=== PATIENT | male | born 1965 | race American Indian/Alaskan Native ===

== ENCOUNTER 2021-10-29 22:03 | Inpatient (IN) ==
[2021-10-29] MEDS ORDERED: *HR* Ticagrelor 90 MG TABLET ONE (22:09)
[2021-10-29] MEDS ORDERED: *HR* Heparin 5,000 UNIT/ML VIAL ONE (22:09)
[2021-10-29] MEDS ORDERED: *HR* Heparin 5,000 UNIT/ML VIAL IVP ONE (22:15)
[2021-10-29] MEDS ORDERED: *HR* Ticagrelor 90 MG TABLET PO ONE (22:15)
[2021-10-29] MEDS ORDERED: Morphine Sulfate 2 MG/ML SYRINGE IVP ONE ×2 (22:19→22:21)
[2021-10-29 22:26] LABS: Basophils # 0.1 K/mcL (0.0-0.2); Basophils % 0.4 %; Eosinophils # 0.1 K/mcL (0.0-0.6); Eosinophils % 0.8 %; Hematocrit 40.5 % (37.5-50.1); Hemoglobin 14.1 g/dL (12.9-16.9); Immature Granulocytes % 0.5 % (0-4); Lymphocytes # 1.5 K/mcL (0.6-4.6); Lymphocytes % 11.5 %; Mean Corpuscular HGB Conc 34.8 g/dL (31.6-35.5); Mean Corpuscular Hemoglobin 28.3 pg (28.0-33.3); Mean Corpuscular Volume 81.2 fL (83.0-100.0); Monocytes # 0.7 K/mcL (0.0-1.3); Monocytes % 4.9 %; Neutrophils # 10.9 K/mcL (1.6-8.9); Platelet Count 266 K/mcL (140-400); Red Blood Count 4.99 M/mcL (4.19-5.50); Red Cell Distribution Width 12.3 % (11.5-14.5); Segmented Neutrophils % 81.9 %; White Blood Count 13.3 K/mcL (4.3-11.1)
[2021-10-29] MEDS ORDERED: 0.9 % Sodium Chloride 2,000 ML ONE (22:36)
[2021-10-29] MEDS ORDERED: Nitroglycerin 1,000 MCG/5 ML VIAL IV ONE (22:36)
[2021-10-29] MEDS ORDERED: *HR* Heparin 10,000 UNIT/10 ML VIAL ONE (22:36)
[2021-10-29] MEDS ORDERED: Iopamidol - 370 200 ML INFUS..BTL ONE (22:36)
[2021-10-29] MEDS ORDERED: Heparin 1,000 UNITS/500 mL 500 ML ONE (22:36)
[2021-10-29 22:37] LABS: Activated Partial Thrombo Time 32.8 Seconds (26.0-36.0); INR 1.1; Prothrombin Time 12.4 Seconds (9.4-12.1)
[2021-10-29 22:47] LABS: Potassium 4.1 mEq/L (3.5-5.1)
[2021-10-29 22:50] LABS: Troponin I 0.09 ng/mL (< 0.04)
[2021-10-29] MEDS ORDERED: *HR* FentaNYL (PF) 100 MCG/2 ML VIAL ONE (23:03)
[2021-10-29] MEDS ORDERED: *HR* Midazolam HCl 2 MG/2 ML VIAL ONE (23:04)
[2021-10-29] MEDS ORDERED: 0.9 % Sodium Chloride 1,000 ML ONE (23:09)
[2021-10-29] MEDS ORDERED: DOPamine Premix 0 MG/0 ML BAG ONE (23:15)
[2021-10-29] MEDS ORDERED: *HR* Atropine Sulfate 1 MG/10 ML SYRINGE ONE (23:15)
[2021-10-29] MEDS ORDERED: Naloxone 0.4 MG/ML INJ IVP PRN (23:31)
[2021-10-30 05:40] LABS: Basophils % 0.4 %; Eosinophils % 0.1 %; Hematocrit 34.8 % (37.5-50.1); Immature Granulocytes % 0.3 % (0-4); Lymphocytes # 1.3 K/mcL (0.6-4.6); Lymphocytes % 16.4 %; Mean Corpuscular HGB Conc 35.3 g/dL (31.6-35.5); Mean Corpuscular Hemoglobin 28.7 pg (28.0-33.3); Mean Corpuscular Volume 81.3 fL (83.0-100.0); Mean Platelet Volume 9.3 fL (9.4-12.4); Monocytes # 0.5 K/mcL (0.0-1.3); Monocytes % 5.9 %; Neutrophils # 5.9 K/mcL (1.6-8.9); Platelet Count 184 K/mcL (140-400); Red Blood Count 4.28 M/mcL (4.19-5.50); Red Cell Distribution Width 12.6 % (11.5-14.5); Segmented Neutrophils % 76.9 %; White Blood Count 7.7 K/mcL (4.3-11.1)
[2021-10-30 05:41] LABS: Hemoglobin 12.3 g/dL (12.9-16.9)
[2021-10-30 05:46] LABS: Estimated Average Glucose 111 mg/dl; Hemoglobin A1C 5.5 %
[2021-10-30 06:03] LABS: BUN/Creatinine Ratio 8 (6-26); Blood Urea Nitrogen 6 mg/dL (6-20); Calcium 7.8 mg/dL (8.6-10.3); Carbon Dioxide 19 mEq/L (23-29); Chloride 101 mEq/L (98-107); Chol/HDL Ratio 5.2 (0-4.9); Cholesterol 150 mg/dL (< 200); Glucose 87 mg/dL (70-105); HDL Cholesterol 29 mg/dL (40-59); LDL Cholesterol,Calculated 108 mg/dL (< 100); Osmolality,Calculated 259 (280-300); Potassium 4.3 mEq/L (3.5-5.1); Sodium 126 mEq/L (136-145); Triglycerides 64 mg/dL (< 150)
[2021-10-30] MEDS ORDERED: Ondansetron 4 MG/2 ML VIAL IVP PRN (06:19)
[2021-10-30] MEDS ORDERED: Ondansetron 4 MG/2 ML VIAL ONE (06:20)
[2021-10-30] MEDS: Aspirin 81 MG TAB.CHEW PO SCH (08:41)
[2021-10-30] MEDS: *HR* Ticagrelor 90 MG TABLET PO SCH ×2 (08:42→19:50)
[2021-10-30] MEDS ORDERED: Iopamidol - 370 500 ML MLS IVP ONE (09:46)
[2021-10-30] MEDS ORDERED: Nitroglycerin 0.4 MG TAB.SUBL SL PRN (12:37)
[2021-10-30] MEDS ORDERED: 0.9 % Sodium Chloride 1,000 ML IVC SCH (13:30)
[2021-10-31] MEDS: *HR* Ticagrelor 90 MG TABLET PO SCH (10:08)
[2021-10-31] MEDS: Aspirin 81 MG TAB.CHEW PO SCH (10:09)
[2021-10-31] MEDS ORDERED: *HR* Ticagrelor 90 MG TABLET PO SCH (10:15)
[2021-10-31] MEDS ORDERED: NiCARdipine 2.5 MG/10 ML Syringe IVPB ONE (10:44)
[2021-10-31] MEDS ORDERED: DOBUTamine 0 MG/0 ML BAG ONE (10:44)
[2021-10-31] MEDS ORDERED: Chlorhexidine Rinse 15 ML MOUTHWASH MM SCH (10:45)
[2021-10-31] MEDS ORDERED: CeFAZolin Syr 2,000MG/20 ML 2,000 MG/20 ML SYRINGE IVPB ONE (10:45)
[2021-10-31] MEDS ORDERED: *HR* FentaNYL (PF) 1,000 MCG/20 ML VIAL ONE (10:48)
[2021-10-31] MEDS ORDERED: *HR* Magnesium Sulfate 1 GM/2 ML VIAL ONE (10:49)
[2021-10-31] MEDS ORDERED: Lidocaine 2% Syringe 100 MG/5 ML ONE (10:49)
[2021-10-31] MEDS ORDERED: *HR* Midazolam HCl 5 MG/5 ML VIAL IVP ONE (10:49)
[2021-10-31] MEDS ORDERED: *HR* Etomidate 20 MG/10 ML AMPUL IVP ONE (10:49)
[2021-10-31] MEDS ORDERED: *HR* Rocuronium Bromide 50 MG/5 ML VIAL ONE (10:49)
[2021-10-31] MEDS ORDERED: Papaverine 60 MG/2 ML VIAL IVP ONE (10:56)
[2021-10-31 11:05] LABS: Basophils % 0.4 %; Eosinophils % 0.2 %; Hematocrit 43.2 % (37.5-50.1); Immature Granulocytes % 0.3 % (0-4); Lymphocytes # 1.1 K/mcL (0.6-4.6); Mean Corpuscular HGB Conc 34.7 g/dL (31.6-35.5); Mean Corpuscular Hemoglobin 28.5 pg (28.0-33.3); Mean Corpuscular Volume 82.1 fL (83.0-100.0); Mean Platelet Volume 9.1 fL (9.4-12.4); Monocytes # 0.6 K/mcL (0.0-1.3); Neutrophils # 8.3 K/mcL (1.6-8.9); Platelet Count 242 K/mcL (140-400); Red Blood Count 5.26 M/mcL (4.19-5.50); Red Cell Distribution Width 12.5 % (11.5-14.5); Segmented Neutrophils % 82.1 %; White Blood Count 10.1 K/mcL (4.3-11.1)
[2021-10-31 11:13] LABS: Prothrombin Time 11.3 Seconds (9.4-12.1)
[2021-10-31 11:15] LABS: Activated Partial Thrombo Time 42.1 Seconds (26.0-36.0)
[2021-10-31 11:22] LABS: BUN/Creatinine Ratio 7 (6-26); Blood Urea Nitrogen 7 mg/dL (6-20); Carbon Dioxide 22 mEq/L (23-29); Chloride 96 mEq/L (98-107); Glucose 92 mg/dL (70-105); Osmolality,Calculated 264 (280-300); Potassium 3.6 mEq/L (3.5-5.1); Sodium 128 mEq/L (136-145)
[2021-10-31] MEDS ORDERED: lisinopriL 5 MG TABLET PO SCH (11:30)
[2021-10-31 11:44] VITALS: TEMP 98.2
[2021-10-31 11:46] VITALS: O2SAT 100
[2021-10-31 12:12] VITALS: BP 129/97; PULSE 54
[2021-11-02] MEDS ORDERED: Norepinephrine 4 MG in 0.9 % Sodium Chloride 250 ML IVC PRN (07:45)
[2021-11-02] MEDS ORDERED: Heparin 15,000 UNIT in 0.9 % Sodium Chloride 500 ML IR ONE (07:45)
[2021-11-02] MEDS ORDERED: del Nido Cardioplegia Solution PF ONE ×2 (08:00)
[2021-11-02] MEDS ORDERED: Buckersberg's Blood Cardioplegia PF ONE (08:00)
== END 2021-10-31 13:33 | disposition home or self-care (01) | DRG 174 ==
LOC: EMEROOARM 22:03 → ICNU 22:03
PROVIDERS: ADMIT Internal Medicine; ATTEND Internal Medicine

== ENCOUNTER 2021-12-10 06:02 | Inpatient (IN) ==
[~2021-12-10 06:02] MED LIST: CeFAZolin Syr 2,000MG/20 ML 2,000 MG/20 ML SYRINGE IVPB ONE; Chlorhexidine Rinse 15 ML MOUTHWASH MM SCH; DOBUTamine 1,000 MG/250 ML BAG ONE
[2021-12-10] MEDS ORDERED: *HR* FentaNYL (PF) 1,000 MCG/20 ML VIAL ONE (06:03)
[2021-12-10] MEDS ORDERED: *HR* Midazolam HCl 5 MG/5 ML VIAL IVP ONE (06:03)
[2021-12-10] MEDS ORDERED: *HR* Propofol 200 MG/20 ML VIAL IVP ONE (06:06)
[2021-12-10] MEDS ORDERED: Lidocaine 2% Syringe 100 MG/5 ML ONE (06:07)
[2021-12-10] MEDS ORDERED: *HR* Rocuronium Bromide 50 MG/5 ML VIAL ONE ×2 (06:07→09:25)
[2021-12-10] MEDS ORDERED: *HR* Magnesium Sulfate 1 GM/2 ML VIAL ONE (06:07)
[2021-12-10] MEDS ORDERED: Tranexamic Acid 1,000 MG/10 ML VIAL ONE (06:07)
[2021-12-10] MEDS ORDERED: Famotidine 20 MG/2 ML VIAL ONE (06:07)
[2021-12-10] MEDS ORDERED: Heparin 1,000 UNITS/500 mL 0 ML ONE (06:12)
[2021-12-10] MEDS ORDERED: CeFAZolin Syr 2,000MG/20 ML 2,000 MG/20 ML SYRINGE IVPB ONE (06:27)
[2021-12-10] MEDS ORDERED: Aspirin 325 MG TABLET PO ONE (06:28)
[2021-12-10] MEDS ORDERED: Ringers Solution, Lactated 1,000 ML IVC SCH (06:30)
[2021-12-10] MEDS ORDERED: Buckersberg's Blood Cardioplegia PF ONE (07:00)
[2021-12-10] MEDS ORDERED: Heparin 15,000 UNIT in 0.9 % Sodium Chloride 500 ML IR ONE (07:00)
[2021-12-10] MEDS ORDERED: Norepinephrine 4 MG in 0.9 % Sodium Chloride 250 ML IVC PRN (07:00)
[2021-12-10] MEDS ORDERED: del Nido Cardioplegia Solution PF ONE ×2 (07:00)
[2021-12-10 07:48] LABS: ABG Base Excess -3 mEq/L (-2 to 3); ABG Chloride 101 mEq/L (98-107); ABG Glucose 91 mg/dL (60-95); ABG HCO3 23 mEq/L (21-27); ABG Ionized Calcium 1.23 mmol/L (1.15-1.35); ABG Oxygen Saturation 100 % (95-98); ABG PCO2 42 mmHg (35-45); ABG PH 7.35 pH Units (7.32-7.45); ABG PO2 398 mmHg (85-104); ABG TCO2 24 mEq/L (20-26)
[2021-12-10] MEDS ORDERED: Heparin 1,000 UNITS/500 mL 500 ML ONE (08:10)
[2021-12-10 09:16] LABS: ABG Base Excess -4 mEq/L (-2 to 3); ABG Chloride 102 mEq/L (98-107); ABG Glucose 97 mg/dL (60-95); ABG HCO3 21 mEq/L (21-27); ABG Ionized Calcium 1.18 mmol/L (1.15-1.35); ABG Oxygen Saturation 100 % (95-98); ABG PCO2 37 mmHg (35-45); ABG PH 7.36 pH Units (7.32-7.45); ABG PO2 193 mmHg (85-104); ABG TCO2 22 mEq/L (20-26)
[2021-12-10 10:09] LABS: ABG Base Excess -2 mEq/L (-2 to 3); ABG Chloride 101 mEq/L (98-107); ABG Glucose 120 mg/dL (60-95); ABG HCO3 21 mEq/L (21-27); ABG Ionized Calcium 1.06 mmol/L (1.15-1.35); ABG Oxygen Saturation 100 % (95-98); ABG PCO2 31 mmHg (35-45); ABG PH 7.44 pH Units (7.32-7.45); ABG PO2 562 mmHg (85-104); ABG TCO2 22 mEq/L (20-26)
[2021-12-10] MEDS ORDERED: Insulin Regular, Human 100 UNIT/ML IV PRN (10:21)
[2021-12-10] MEDS ORDERED: Potassium Chloride 40 MEQ/200 ML BAG IVPB PRN (10:21)
[2021-12-10] MEDS ORDERED: *HR* Dextrose 50 % in Water (Syg) 50 ML SYRINGE IVP PRN (10:21)
[2021-12-10] MEDS ORDERED: Acetaminophen 325 MG TABLET PO PRN (10:23)
[2021-12-10] MEDS ORDERED: *HR* FentaNYL (PF) 100 MCG/2 ML VIAL IVP PRN (10:23)
[2021-12-10] MEDS ORDERED: Calcium Gluconate 1gm/50mL 1 GM/50 ML BAG IVPB PRN ×2 (10:23→13:30)
[2021-12-10] MEDS ORDERED: Albuterol 2.5 MG/3 ML NEBULIZER IH PRN (10:23)
[2021-12-10] MEDS ORDERED: Ondansetron 4 MG/2 ML VIAL IVP PRN (10:23)
[2021-12-10] MEDS ORDERED: Naloxone 0.4 MG/ML INJ IVP PRN (10:23)
[2021-12-10] MEDS ORDERED: Calcium Gluconate 1,000 MG/10 ML VIAL ONE (10:31)
[2021-12-10] MEDS ORDERED: Protamine Sulfate 250 MG/25 ML VIAL IVP ONE (10:31)
[2021-12-10 10:34] LABS: ABG Base Excess 2 mEq/L (-2 to 3); ABG Chloride 99 mEq/L (98-107); ABG Glucose 137 mg/dL (60-95); ABG HCO3 28 mEq/L (21-27); ABG Ionized Calcium 1.26 mmol/L (1.15-1.35); ABG Oxygen Saturation 100 % (95-98); ABG PCO2 47 mmHg (35-45); ABG PH 7.38 pH Units (7.32-7.45); ABG PO2 518 mmHg (85-104); ABG TCO2 29 mEq/L (20-26)
[2021-12-10 11:16] LABS: ABG Base Excess 2 mEq/L (-2 to 3); ABG Chloride 99 mEq/L (98-107); ABG Glucose 144 mg/dL (60-95); ABG HCO3 28 mEq/L (21-27); ABG Ionized Calcium 1.26 mmol/L (1.15-1.35); ABG Oxygen Saturation 100 % (95-98); ABG PCO2 48 mmHg (35-45); ABG PH 7.37 pH Units (7.32-7.45); ABG PO2 389 mmHg (85-104); ABG TCO2 29 mEq/L (20-26)
[2021-12-10] MEDS: Albumin Human 5% 12.5 GM/250 ML IV.SOLN IVPB PRN ×2 (11:42→20:03)
[2021-12-10 11:54] LABS: ABG Base Excess 1 mEq/L (-2 to 3); ABG HCO3 26 mEq/L (21-27); ABG Oxygen Saturation 100 % (95-98); ABG PCO2 44 mmHg (35-45); ABG PH 7.38 pH Units (7.32-7.45); ABG PO2 412 mmHg (85-104); ABG TCO2 28 mEq/L (20-26); Blood Gas Modality ASSIST CONTROL; Blood Gas VT 500 cc
[2021-12-10] MEDS: Ipratropium/Albuterol Neb 3 ML IH SCH ×4 (12:10→23:47)
[2021-12-10 12:14] LABS: INR 1.5; Prothrombin Time 16.2 Seconds (9.4-12.1)
[2021-12-10 12:17] LABS: Activated Partial Thrombo Time 34.2 Seconds (26.0-36.0)
[2021-12-10 12:21] LABS: BUN/Creatinine Ratio 5 (6-26); Blood Urea Nitrogen 4 mg/dL (6-20); Carbon Dioxide 25 mEq/L (23-29); Chloride 103 mEq/L (98-107); Glucose 173 mg/dL (70-105); Magnesium 2.4 mg/dL (1.6-2.6); Osmolality,Calculated 281 (280-300); Sodium 135 mEq/L (136-145)
[2021-12-10] MEDS: *HR* OxyCODONE/APAP 5/325 TABLET PO PRN ×3 (12:26→22:08)
[2021-12-10] MEDS ORDERED: *HR* Magnesium Sulfate 2 GM/50 ML PIGGYBACK IVPB ONE (12:54)
[2021-12-10] MEDS ORDERED: Heparin 1,000 UNITS/500 mL IV.SOLN IR ONE (12:54)
[2021-12-10] MEDS ORDERED: Albumin Human 25% 25 GM/100 ML IV.SOLN IVPB ONE (12:54)
[2021-12-10] MEDS ORDERED: *HR* Phenylephrine 10 MG/ML VIAL IVC ONE (12:54)
[2021-12-10] MEDS ORDERED: Lidocaine 2% Syringe 100 MG/5 ML IVP ONE (12:54)
[2021-12-10] MEDS ORDERED: Mannitol 25% vial 12.5 GM/50 ML VIAL IVPB ONE (12:54)
[2021-12-10] MEDS ORDERED: Tranexamic Acid 1,000 MG/10 ML VIAL IR ONE (12:54)
[2021-12-10] MEDS ORDERED: *HR* Heparin 10,000 UNIT/10 ML VIAL IR ONE (12:54)
[2021-12-10] MEDS ORDERED: Sodium Bicarbonate 50 MEQ/50 ML VIAL IVC ONE (12:54)
[2021-12-10 13:11] LABS: Basophils % 0.2 %; Eosinophils % 0.1 %; Hematocrit 32.8 % (37.5-50.1); Hemoglobin 11.1 g/dL (12.9-16.9); Immature Granulocytes % 0.4 % (0-4); Lymphocytes # 0.6 K/mcL (0.6-4.6); Lymphocytes % 5.2 %; Mean Corpuscular HGB Conc 33.8 g/dL (31.6-35.5); Mean Corpuscular Hemoglobin 27.3 pg (28.0-33.3); Mean Corpuscular Volume 80.8 fL (83.0-100.0); Mean Platelet Volume 8.8 fL (9.4-12.4); Monocytes # 0.2 K/mcL (0.0-1.3); Platelet Count 139 K/mcL (140-400); Red Blood Count 4.06 M/mcL (4.19-5.50); Red Cell Distribution Width 12.2 % (11.5-14.5); Segmented Neutrophils % 92.1 %
[2021-12-10 13:17] LABS: Neutrophils # 10.1 K/mcL (1.6-8.9)
[2021-12-10 16:12] LABS: ABG Base Excess 2 mEq/L (-2 to 3); ABG HCO3 27 mEq/L (21-27); ABG Oxygen Saturation 98 % (95-98); ABG PCO2 46 mmHg (35-45); ABG PH 7.37 pH Units (7.32-7.45); ABG PO2 113 mmHg (85-104); ABG TCO2 29 mEq/L (20-26); Blood Gas Modality CPAP/PS; Blood Gas Pressure Support 5 cm H2O
[2021-12-10] MEDS: CeFAZolin 2 GM/120 ML BAG IVPB SCH ×2 (17:31→23:59)
[2021-12-10] MEDS: Norepinephrine 4 MG/254 ML IV.SOLN IVC SCH (19:00)
[2021-12-10] MEDS: niCARdipine 20 MG/200 ML MLS IVC SCH (19:30)
[2021-12-10] MEDS: DOBUTamine 1,000 MG/250 ML BAG IVC SCH (19:30)
[2021-12-10] MEDS: Chlorhexidine Rinse 15 ML MOUTHWASH MM SCH (19:36)
[2021-12-10] MEDS: risperiDONE 1 MG TABLET PO SCH (19:51)
[2021-12-10] MEDS: hydrOXYzine pamoate 25 MG CAPSULE PO PRN (19:51)
[2021-12-10 20:12] LABS: ABG Base Excess 0 mEq/L (-2 to 3); ABG HCO3 24 mEq/L (21-27); ABG Oxygen Saturation 92 % (95-98); ABG PCO2 36 mmHg (35-45); ABG PH 7.44 pH Units (7.32-7.45); ABG PO2 62 mmHg (85-104); ABG TCO2 25 mEq/L (20-26)
[2021-12-11] MEDS: Ipratropium/Albuterol Neb 3 ML IH SCH ×5 (04:14→19:24)
[2021-12-11 04:40] LABS: Basophils % 0.1 %; Hematocrit 27.4 % (37.5-50.1); Immature Granulocytes % 0.5 % (0-4); Lymphocytes # 0.9 K/mcL (0.6-4.6); Lymphocytes % 5.4 %; Mean Corpuscular HGB Conc 34.7 g/dL (31.6-35.5); Mean Corpuscular Hemoglobin 27.9 pg (28.0-33.3); Mean Corpuscular Volume 80.6 fL (83.0-100.0); Mean Platelet Volume 9.3 fL (9.4-12.4); Monocytes # 1.1 K/mcL (0.0-1.3); Monocytes % 6.8 %; Neutrophils # 13.8 K/mcL (1.6-8.9); Platelet Count 154 K/mcL (140-400); Red Cell Distribution Width 12.2 % (11.5-14.5); Segmented Neutrophils % 87.2 %; White Blood Count 15.9 K/mcL (4.3-11.1)
[2021-12-11 04:42] LABS: INR 1.2; Prothrombin Time 13.7 Seconds (9.4-12.1)
[2021-12-11 04:58] LABS: Hemoglobin 9.5 g/dL (12.9-16.9)
[2021-12-11 05:04] LABS: BUN/Creatinine Ratio 6 (6-26); Blood Urea Nitrogen 5 mg/dL (6-20); Calcium 8.1 mg/dL (8.6-10.3); Carbon Dioxide 24 mEq/L (23-29); Chloride 104 mEq/L (98-107); Glucose 121 mg/dL (70-105); Magnesium 1.9 mg/dL (1.6-2.6); Osmolality,Calculated 275 (280-300); Potassium 4.1 mEq/L (3.5-5.1); Sodium 133 mEq/L (136-145)
[2021-12-11] MEDS: Norepinephrine 4 MG/254 ML IV.SOLN IVC SCH (05:10)
[2021-12-11] MEDS: niCARdipine 20 MG/200 ML MLS IVC SCH ×7 (05:11→20:08)
[2021-12-11] MEDS: *HR* OxyCODONE/APAP 5/325 TABLET PO PRN ×2 (05:42→12:27)
[2021-12-11] MEDS: *HR* Enoxaparin 40 MG/0.4 ML SYRINGE SQ SCH (05:47)
[2021-12-11] MEDS: CeFAZolin 2 GM/120 ML BAG IVPB SCH ×2 (07:55→16:05)
[2021-12-11] MEDS ORDERED: D5% in Water 1,000 ML IVC PRN (08:47)
[2021-12-11] MEDS ORDERED: Dextrose Gel 15 GM/37.5 ML TUBE PO PRN (08:47)
[2021-12-11] MEDS ORDERED: risperiDONE 1 MG TABLET PO SCH (09:00)
[2021-12-11] MEDS: Aspirin Enteric Coated 81 MG Tablet PO SCH (09:17)
[2021-12-11] MEDS: Chlorhexidine Rinse 15 ML MOUTHWASH MM SCH ×2 (09:17→20:06)
[2021-12-11] MEDS: risperiDONE 1 MG TABLET PO SCH ×2 (09:18→20:07)
[2021-12-11] MEDS: FLUoxetine 20 MG CAPSULE PO SCH (09:18)
[2021-12-11] MEDS: Pantoprazole 40 MG VIAL IVP SCH (09:18)
[2021-12-11] MEDS: OXcarbazepine 150 MG TABLET PO SCH (09:39)
[2021-12-11] MEDS: clonazePAM 0.5 MG TABLET PO SCH (09:39)
[2021-12-11] MEDS: Albumin Human 5% 12.5 GM/250 ML IV.SOLN IVPB PRN ×2 (10:04→10:48)
[2021-12-11] MEDS: DOBUTamine 1,000 MG/250 ML BAG IVC SCH (12:23)
[2021-12-11 13:13] LABS: ABG Base Excess -4 mEq/L (-2 to 3); ABG Chloride 100 mEq/L (98-107); ABG Glucose 92 mg/dL (60-95); ABG HCO3 21 mEq/L (21-27); ABG Ionized Calcium 1.04 mmol/L (1.15-1.35); ABG PCO2 39 mmHg (35-45); ABG PH 7.34 pH Units (7.32-7.45); ABG PO2 > 630 mmHg (85-104); ABG TCO2 22 mEq/L (20-26)
[2021-12-11] MEDS: Insulin LISPRO 300 UNITS/3 ML VIAL SUBQ SCH ×2 (13:56→16:11)
[2021-12-11] MEDS ORDERED: Aspirin 81 MG TAB.CHEW PO ONE (14:00)
[2021-12-11] MEDS: hydrOXYzine pamoate 25 MG CAPSULE PO PRN (20:06)
[2021-12-11] MEDS ORDERED: Insulin LISPRO 300 UNITS/3 ML VIAL SUBQ SCH (21:00)
[2021-12-12] MEDS: Ipratropium/Albuterol Neb 3 ML IH SCH ×4 (00:02→11:09)
[2021-12-12] MEDS: CeFAZolin 2 GM/120 ML BAG IVPB SCH ×2 (00:39→08:18)
[2021-12-12 04:05] LABS: Basophils % 0.3 %; Eosinophils # 0.1 K/mcL (0.0-0.6); Eosinophils % 0.9 %; Hematocrit 26.3 % (37.5-50.1); Hemoglobin 8.9 g/dL (12.9-16.9); Immature Granulocytes % 0.4 % (0-4); Lymphocytes # 2.1 K/mcL (0.6-4.6); Lymphocytes % 18.3 %; Mean Corpuscular HGB Conc 33.8 g/dL (31.6-35.5); Mean Corpuscular Hemoglobin 27.7 pg (28.0-33.3); Mean Corpuscular Volume 81.9 fL (83.0-100.0); Mean Platelet Volume 9.7 fL (9.4-12.4); Monocytes # 0.8 K/mcL (0.0-1.3); Monocytes % 6.8 %; Neutrophils # 8.2 K/mcL (1.6-8.9); Platelet Count 152 K/mcL (140-400); Red Blood Count 3.21 M/mcL (4.19-5.50); Red Cell Distribution Width 12.3 % (11.5-14.5); Segmented Neutrophils % 73.3 %; White Blood Count 11.2 K/mcL (4.3-11.1)
[2021-12-12 04:22] LABS: Magnesium 1.8 mg/dL (1.6-2.6); Potassium 4.1 mEq/L (3.5-5.1)
[2021-12-12] MEDS: *HR* Enoxaparin 40 MG/0.4 ML SYRINGE SQ SCH (05:11)
[2021-12-12] MEDS: niCARdipine 20 MG/200 ML MLS IVC SCH ×2 (05:14→05:20)
[2021-12-12 07:35] VITALS: TEMP 98.1
[2021-12-12] MEDS: Insulin LISPRO 300 UNITS/3 ML VIAL SUBQ SCH (07:37)
[2021-12-12] MEDS: Aspirin Enteric Coated 81 MG Tablet PO SCH (07:52)
[2021-12-12] MEDS: Chlorhexidine Rinse 15 ML MOUTHWASH MM SCH (07:52)
[2021-12-12] MEDS: clonazePAM 0.5 MG TABLET PO SCH (07:53)
[2021-12-12] MEDS: FLUoxetine 20 MG CAPSULE PO SCH (07:53)
[2021-12-12] MEDS: Pantoprazole 40 MG VIAL IVP SCH (07:53)
[2021-12-12] MEDS: risperiDONE 1 MG TABLET PO SCH (07:54)
[2021-12-12] MEDS: OXcarbazepine 150 MG TABLET PO SCH (07:54)
[2021-12-12] MEDS: *HR* OxyCODONE/APAP 5/325 TABLET PO PRN (09:06)
[2021-12-12 09:55] VITALS: PULSE 73; O2SAT 96
[2021-12-12 11:36] VITALS: BP 146/66
== END 2021-12-12 12:55 | disposition home or self-care (01) | DRG 167 ==
LOC: SAMDAY 06:02 → ICNU 11:31
PROVIDERS: ADMIT Thoracic Surgery (Cardiothoracic Vascular Surgery); ATTEND Thoracic Surgery (Cardiothoracic Vascular Surgery)